=== PATIENT | male | born 1990 | race African-American/Black ===

== ENCOUNTER 2020-07-11 01:08 | Emergency (ER) | payer SELFPAY ==
--- NOTE | ~2020-07-11 | XR_ITS ---
EXAMINATION: XR chest 1V portable DATE: 07/11/2020 03:00 INDICATION: Shortness of breath. TECHNIQUE: A single frontal view of the chest was obtained on 2 radiographs. COMPARISON: None. FINDINGS: The chest demonstrates clear lungs without pneumonia, pleural effusion, or pneumothorax. Th e heart size is normal. IMPRESSION: 1. No acute cardiopulmonary disease. Reviewed, dictated and finalized at location A.
[2020-07-11 01:10] VITALS: BP 129/80; PULSE 124; RESP 14; TEMP 36.9; O2SAT 99
[2020-07-11] MEDS: ALBUTEROL SULFATE NEB 2.5 MG/0.5 ML INH 5 MG INHALATION (01:34)
[2020-07-11] MEDS: IPRATROPIUM BR 0.02% INH SOLN 0.5 MG/2.5 ML VIAL INHALATION (01:35)
[2020-07-11 01:38] VITALS: PULSE 121; RESP 20
--- NOTE | 2020-07-11 01:39 | ED.GENADULT ---
HPI - General Adult General Chief complaint: Asthma Stated complaint: ashtma attack Time Seen by Provider: 07/11/20 01:18 History of Present Illness HPI narrative: Patient 29-year-old gentleman who presents the emergency department with chief complaint of shortness of breath. Patient reports that he has history of asthma and has been having to use his nebulizer and inhaler more frequently. Patient states he last used his nebulizer around 10:00 this evening and reports that he got some relief out of that lasted for about an hour patient states that he is still continued to have shortness of breath has had some wheezing at home and feels as though he cannot get a good deep breath. Patient denies fever denies cough reports no prior history of intubation patient states is been sometime since he has been on steroids. Review of Systems Review of Systems: Narrative: A 10 system review of systems was completed on the patient and is negative except for what is stated in the HPI. Nursing and ancillary documentation was reviewed. PMFSH Comments Past medical history significant for asthma Social history the patient denies smoking Exam Narrative: Exam Narrative: GENERAL: Well-appearing, well-nourished, and in no acute distress. HEAD: Normocephalic, atraumatic. EYES: PERRLA and EOMI. ENT: Nares clear, no rhinorrhea or epistaxis. Mucous membranes moist. NECK: Supple. CHEST: Clear to auscultation. No respiratory distress. HEART: Regular rate and rhythm. No murmur heard. Normal peripheral pulses. ABDOMEN: Soft, nontender, nondistended, normal active bowel sounds. EXTREMITIES: Normal range of motion. No edema. SKIN: Warm, dry, no rash. NEURO: No focal deficits. Alert and oriented x3. PSYCH: Normal mood and affect. Course Vital Signs Vital signs: Vital Signs Temperature 36.9 C 07/11/20 01:10 Pulse Rate 124 H 07/11/20 01:10 Respiratory Rate 14 07/11/20 01:10 Blood Pressure 129/80 07/11/20 01:10 Pulse Oximetry 99 07/11/20 01:10 Temperature 36.9 C 07/11/20 01:10 Pulse Rate 109 H 07/11/20 01:47 Respiratory Rate 20 07/11/20 01:47 Blood Pressure 129/80 07/11/20 01:10 Pulse Oximetry 99 07/11/20 01:42 Medical Decision Making Vital Signs Vital Signs: Vital Signs Temperature 36.9 C 07/11/20 01:10 Pulse Rate 124 H 07/11/20 01:10 Respiratory Rate 14 07/11/20 01:10 Blood Pressure 129/80 07/11/20 01:10 Pulse Oximetry 99 07/11/20 01:10 Temperature 36.9 C 07/11/20 01:10 Pulse Rate 109 H 07/11/20 01:47 Respiratory Rate 20 07/11/20 01:47 Blood Pressure 129/80 07/11/20 01:10 Pulse Oximetry 99 07/11/20 01:42 Discharge Plan Discharge Clinical Impression: Asthma with acute exacerbation Qualifiers: Asthma severity: mild Asthma persistence: unspecified Qualified Code(s): J45.901 - Unspecified asthma with (acute) exacerbation Patient Disposition: Home, Self-Care Condition: Stable Instructions: Antibiotic Form, Asthma (ED) Prescriptions: New albuterol sulfate 2.5 mg /3 mL (0.083 %) solution for nebulization 2.5 mg inhalation Q4H PRN (Reason: shortness of breath or wheezing) Qty: 180 RF: 0 prednisone 20 mg tablet 40 mg PO DAILY 5 Days Qty: 10 RF: 0 Follow-up/Referrals: PHYSICIAN,DIGITAL MARKETING ANALYST [Primary Care Provider] - Manuel Riley DO [Physician] - 2 Weeks Time of Disposition: 03:28
[2020-07-11] MEDS: methylPREDNISolone SOD SUCC 125 MG VIAL IV PUSH (01:41)
[2020-07-11 01:42] VITALS: O2SAT 99
[2020-07-11 01:47] VITALS: PULSE 109; RESP 20
[2020-07-11 03:42] VITALS: BP 130/86; PULSE 89; RESP 18; O2SAT 98
== END 2020-07-11 03:44 | disposition home or self-care (01) ==
PROVIDERS: Emergency Provider Emergency Medicine
DX: J45.901 Unspecified asthma with (acute) exacerbation (principal)
CPT/HCPCS: 71045; 94640; 96374; 99284; J2930

== ENCOUNTER 2022-01-26 08:41 | Emergency (ER) | payer SELFPAY ==
[2022-01-26 08:51] VITALS: BP 139/81; PULSE 94; RESP 16; TEMP 36.4; O2SAT 100
--- NOTE | 2022-01-26 09:18 | ED.URI ---
HPI - URI/Sore Throat General Chief Complaint: Upper Respiratory Infection Stated Complaint: sob Time Seen by Provider: 01/26/22 09:18 Source: patient, family, RN notes reviewed and old records reviewed Mode of arrival: ambulatory Limitations: no limitations History of Present Illness HPI Narrative: 31 year old male accompanied by mother presents to express care with complaints of asthma exacerbation for the past 2 days with increased shortness of breath with tightness to chest with breathing and intermittent wheezings. Patient reports that he has used his nebulizer and also his inhaler with minimal results.Patient reports that he has no noted congestion or any sinus drainage, usually seems to be worse episodes in fall and spring with changes of the weather. Patient lives in [facility] and is in area with mother visiting family. MD elicited complaint: other (asthma exacerbation) Pertinent past history: asthma and seasonal allergies Onset (ago): day(s) (2) Treatments prior to arrival: other (nebulizer and inhaler) Related Data Home Medications Medication Instructions Recorded Confirmed albuterol 90 mcg/actuation aerosol 90 mcg inhalation Q3-4H PRN SOB 01/26/22 01/26/22 inhaler Allergies Allergy/AdvReac Type Severity Reaction Status Date / Time egg Allergy Intermediate Rash Verified 01/26/22 09:22 Review of Systems Review of Systems: CONSTITUTIONAL: Denies fever, chills, or sweats. EYES: Denies visual changes, redness, or discharge. ENT: Denies rhinorrhea, congestion, sore throat, or otalgia. CARDIOVASCULAR: Denies chest pain, palpitations, or edema.tightness to chest with breathing RESPIRATORY: positive for cough or dyspnea. GASTROINTESTINAL: Denies abdominal pain, nausea, vomiting, or diarrhea. GENITOURINARY: Denies dysuria or hematuria. SKIN: Denies rash or itching. MUSCULOSKELETAL: Denies back pain, joint pain, or myalgia. NEUROLOGIC: Denies headache, numbness, or weakness. PSYCHIATRIC: Denies anxiety or depression. All systems reviewed & are unremarkable except as noted in HPI and below PMFSH Past Medical History Medical History (Updated 01/29/22 @ 09:33 by Steffi Garcia NP) Asthma Surgical History Surgical History (Updated 01/29/22 @ 09:33 by Steffi Garcia NP) No history of previous surgery Social History Social History (Updated 01/29/22 @ 09:32 by CAROLINE Dominguez Smoking status: Never smoker Alcohol intake: current Alcohol use details: rare ocial Substance use type: does not use Living arrangements: with family Gender identity (if verbalized by the patient): Male Comments At time of signature agree with nursing documention of past medical, surgical, social, and family history. Patient has no relevant family history pertinent to presenting complaint. Exam Narrative: GENERAL: Well-appearing, well-nourished, and in no acute distress. HEAD: Normocephalic, atraumatic. EYES: PERRLA and EOMI. ENT: Nares clear, no rhinorrhea or epistaxis. Mucous membranes moist.TM's normal with good light reflex, throat pink with no lesions or exudates no tonsil swelling NECK: Supple.no lymphadenopathy CHEST: Clear to auscultation. No respiratory distress.SAO2 100% on room air, tightness with breathing and cough HEART: Regular rate and rhythm. No murmur heard. Normal peripheral pulses. ABDOMEN: Soft, nontender, nondistended, normal active bowel sounds. EXTREMITIES: Normal range of motion. No edema. SKIN: Warm, dry, no rash. NEURO: No focal deficits. Alert and oriented x3. Course Course Level of Care: Express Care Visit Vital Signs Vital signs: Vital Signs Temperature 36.4 C L 01/26/22 08:51 Pulse Rate 94 01/26/22 08:51 Respiratory Rate 16 01/26/22 08:51 Blood Pressure 139/81 01/26/22 08:51 Pulse Oximetry 100 01/26/22 08:51 Oxygen Delivery Room Air 01/26/22 08:51 Temperature 36.4 C L 01/26/22 08:51 Pulse Rate 94 01/26/22 08:51 Respiratory Rate 16
[2022-01-26] MEDS: ALBUTEROL SULFATE NEB 2.5 MG/3 ML INH INHALATION (09:28)
[2022-01-26] MEDS: IPRATROPIUM BR 0.02% INH SOLN 0.5 MG/2.5 ML VIAL INHALATION (09:28)
== END 2022-01-26 10:07 | disposition home or self-care (01) ==
PROVIDERS: Emergency Provider Registered Nurse
DX: J45.901 Unspecified asthma with (acute) exacerbation (principal)
CPT/HCPCS: 94640; 99213; G0463